=== PATIENT | female | born 1980 | race Caucasian/White ===

== ENCOUNTER 2021-09-09 05:37 | Emergency (ER) | payer MEDICAID ==
[~2021-09-09] VITALS: Ht 175.3 cm; Wt 81.6 kg
--- NOTE | 2021-09-09 06:18 | NUR ---
BIBS C/O VOMITTING AND MID ABDOMINAL PAIN X FEW DAYS. PATIENT ALERT AND ORIENTED X3. AMBULATORY WITH NON LABORED BREATHING IN BED 09 AWAITING MD BRAND.
--- NOTE | 2021-09-09 06:18 | NUR ---
URINE COLLECTED AND SENT TO LAB
--- NOTE | 2021-09-09 06:19 | NUR ---
DR. ODEN AT PT'S BEDSIDE
[2021-09-09] MEDS ORDERED: ONDANSETRON HCL/PF 4 MG/2 ML VIAL ONE (06:25)
[2021-09-09] MEDS ORDERED: FAMOTIDINE/PF INJ 20 MG/2 ML VIAL IV ONE ×2 (06:25→06:30)
[2021-09-09] MEDS ORDERED: ONDANSETRON HCL/PF 4 MG/2 ML VIAL IVP ONE (06:30)
[2021-09-09] MEDS ORDERED: IV NS 0.9% 1,000 ML BAG IV ONE (06:30)
[2021-09-09 06:50] LABS: BASOPHILS % (AUTO) 0.6 % (0.0-2.0); EOSINOPHILS % (AUTO) 1.3 % (0.0-6.0); HEMATOCRIT 35 % (33-45); HEMOGLOBIN 12.6 g/dL (11.5-14.8); LYMPHOCYTES # (AUTO) 1.4 K/uL (0.8-4.8); LYMPHOCYTES % (AUTO) 24.4 % (20.0-44.0); MEAN CORPUSCULAR HGB CONC 35 g/dl (31.0-36.0); MEAN CORPUSCULAR VOLUME 87 fL (82-100); MONOCYTES # (AUTO) 0.4 K/uL (0.1-1.30); MONOCYTES % (AUTO) 7.7 % (2.0-12.0); NEUTROPHILS # (AUTO) 3.7 K/uL (1.8-8.9); PLATELET COUNT (AUTO) 176 K/uL (150-450); RED BLOOD CELL COUNT(AUTO) 4.06 MIL/uL (4.0-5.2); WHITE BLOOD COUNT (AUTO) 5.6 K/uL (4.3-11.0)
--- NOTE | 2021-09-09 06:50 | NUR ---
LAC #20G S/L; BLOOD COLLECTED AND SENT TO LAB
[2021-09-09 07:06] LABS: ALBUMIN 3.9 g/dL (3.4-5.0); BILIRUBIN,DIRECT 0.4 mg/dL (0.0-0.2); BILIRUBIN,TOTAL 2.3 mg/dL (0.2-1.0); CREATININE 0.7 mg/dL (0.6-1.3); POTASSIUM 3.8 mmol/L (3.5-5.1); TOTAL PROTEIN, SERUM 6.9 g/dL (6.4-8.2)
[2021-09-09 07:39] LABS: CALCIUM, SERUM 8.6 mg/dL (8.5-10.1)
--- NOTE | 2021-09-09 08:03 | NUR ---
US TECH AT BEDSIDE FOR ULTRASOUND
[2021-09-09] MEDS ORDERED: FAMO-131 PO (09:00)
--- NOTE | 2021-09-09 09:05 | NUR ---
Patient discharged to home in stable condition. Written and verbal after care instructions given. Patient verbalizes understanding of instruction.
--- NOTE | 2021-09-09 09:05 | NUR ---
IV removed. Catheter intact and site benign. Pressure and 4x4 applied to site. No bleeding noted. Patient discharged to home in stable condition. Written and verbal after care instructions given. Patient verbalizes understanding of instruction.
[2021-09-09 09:06] VITALS: BP 126/71
== END 2021-09-09 09:08 | disposition home or self-care (01) ==
LOC: ER 05:45
DX: R10.13 Epigastric pain (principal); R11.10 Vomiting, unspecified; Z88.8 Allergy status to other drugs, medicaments and biological substances; Z79.899 Other long term (current) drug therapy
CPT/HCPCS: 36415; 76705; 80048; 80076; 83690; 84702; 85025; 96361; 96374; 96375; 99284; J2405; J3490; J7030